=== PATIENT | male | born 1945 | race Two or more races ===

== ENCOUNTER 2018-02-26 06:00 | Day surgery (SDC) | payer OTHER ==
[~2018-02-26 06:00] MED LIST: TAMS0.4C PO; TIROSINT25 MCG PO
[2018-02-26] MEDS ORDERED: NEURONTIN300 MG PO (10:51)
[2018-02-26] MEDS ORDERED: PERCOCET 5-3251 EACH PO (10:51)
[2018-02-26] MEDS ORDERED: MIRALAX17 GM PO (10:51)
== END 2018-02-26 13:05 | disposition home or self-care (01) ==
LOC: CIR.AMB 06:00
DX: K40.90 Unilateral inguinal hernia, without obstruction or gangrene, not specified as recurrent (principal)

== ENCOUNTER 2018-04-06 09:55 | Emergency (ER) | payer OTHER ==
[~2018-04-06] VITALS: Ht 182.9 cm; Wt 78.9 kg
[~2018-04-06 09:55] MED LIST changes: +MIRALAX17 GM PO; +NEURONTIN300 MG PO; +PERCOCET 5-3251 EACH PO
[2018-04-06] MEDS ORDERED: TAMS0.4C (10:07)
== END 2018-04-06 10:51 | disposition home or self-care (01) ==
LOC: ER 09:55
DX: S91.022A Laceration with foreign body, left ankle, initial encounter (principal); W26.8XXA Contact with other sharp object(s), not elsewhere classified, initial encounter; Y93.G3 Activity, cooking and baking; Y92.018 Other place in single-family (private) house as the place of occurrence of the external cause; Y99.8 Other external cause status

== ENCOUNTER 2018-07-30 16:45 | Outpatient (CLI) | payer OTHER ==
[~2018-07-30 16:45] MED LIST changes: +TAMS0.4C
== END 2018-07-30 16:51 | disposition home or self-care (01) ==
LOC: LAB 16:45
DX: N30.00 Acute cystitis without hematuria (principal)

== ENCOUNTER → 2018-08-29 | Outpatient (CLI) | payer OTHER | END | disposition home or self-care (01) | LOC: RAD 11:39 | DX: R07.89 Other chest pain (principal) ==

== ENCOUNTER → 2019-08-04 08:15 | Outpatient (CLI) | payer OTHER | END | disposition home or self-care (01) | LOC: LAB 08:15 | DX: N39.0 Urinary tract infection, site not specified (principal); N20.0 Calculus of kidney; N40.0 Benign prostatic hyperplasia without lower urinary tract symptoms ==

== ENCOUNTER 2021-02-07 12:57 | Outpatient (CLI) | payer OTHER | END 2021-02-07 13:02 | disposition home or self-care (01) | LOC: RAD 12:57 | PROVIDERS: ATTEND Specialist | DX: M25.562 Pain in left knee (principal) ==

== ENCOUNTER 2023-07-24 07:39 | Outpatient (CLI) | payer OTHER | END 2023-07-24 07:41 | disposition home or self-care (01) | LOC: NUCLEAR 07:39 | PROVIDERS: ATTEND Internal Medicine Hematology & Oncology | DX: C69.92 Malignant neoplasm of unspecified site of left eye (principal); I10 Essential (primary) hypertension; N40.1 Benign prostatic hyperplasia with lower urinary tract symptoms | CPT/HCPCS: 78815; A9552 ==

== ENCOUNTER 2024-07-28 07:25 | Outpatient (CLI) | payer OTHER | END 2024-07-28 07:31 | disposition home or self-care (01) | LOC: SONOGRAMA 07:25 | PROVIDERS: ATTEND Specialist | DX: N45.1 Epididymitis (principal) ==